=== PATIENT | female | born 1950 | race Caucasian/White ===

== ENCOUNTER 2021-10-15 19:46 | Emergency (ER) | payer SELFPAY ==
[~2021-10-15] VITALS: Ht 162.6 cm; Wt 72.6 kg
[2021-10-15 20:11] VITALS: BP_SYST 165
[2021-10-15 20:30] VITALS: BP_SYST 132
== END 2021-10-15 20:30 | disposition home or self-care (01) ==
LOC: SED 19:46
DX: R06.4 Hyperventilation (principal); F41.9 Anxiety disorder, unspecified; I10 Essential (primary) hypertension
CPT/HCPCS: 93005; 99283